=== PATIENT | female | born 1950 | race Caucasian/White ===

== ENCOUNTER 2017-11-19 17:05 | Emergency (ER) | payer MEDICARE, OTHER ==
--- NOTE | 2017-11-19 17:14 | PDOC ---
Rapid Medical Evaluation Time Seen by Provider: 11/19/17 17:10 Medical Evaluation: Allergies Allergy/AdvReac Type Severity Reaction Status Date / Time Penicillins Allergy Unknown Verified 03/20/15 12:12 11/19/17 17:11 I have performed a brief in-person evaluation of this patient. The patient presents with a chief complaint of: Crush injury to L 3rd digit after tripped and fall at home, no head injury, loc, DIA, dizziness, n/v. H/o HTN , HLD, not on blood thinners, DM Pertinent physical exam findings: stable w/ mild erythema to distal phalanx of L 3rd digit w/ very small area of subungal hematoma I have ordered the following:xray The patient will proceed to the ED for further evaluation. Discharge Disposition - Diagnosis Finger injury Qualifiers: Encounter type: initial encounter Laterality: left Qualified Code(s): S69.92XA - Unspecified injury of left wrist, hand and finger(s), initial encounter - Referrals - Patient Instructions - Post Discharge Activity
[2017-11-19 17:16] VITALS: BP 119/76; PULSE 87; TEMP 97.7; BMI 34.4
[2017-11-19] MEDS ORDERED: IBUPROFEN 600 MG TABLET (FP) PO ONE ×2 (17:54→17:56)
--- NOTE | 2017-11-19 17:54 | PDOC ---
History of Present Illness - General Chief Complaint: Pain, Acute Stated Complaint: FINGER INJURY Time Seen by Provider: 11/19/17 17:10 History Source: Patient Exam Limitations: No Limitations - History of Present Illness Initial Comments: 11/19/17 17:52 67 yr female with left middle digit finger got stuck in file drawer at 4pm today. pain and swelling to digit. Past History - Past Medical History Allergies/Adverse Reactions: Allergies Allergy/AdvReac Type Severity Reaction Status Date / Time Penicillins Allergy Unknown Verified 03/20/15 12:12 Home Medications: Ambulatory Orders Amlodipine Besylate 10 mg PO HS 03/20/15 Levothyroxine [Synthroid -] 25 mcg PO DAILY 03/20/15 Pravastatin Sodium 20 mg PO HS 03/20/15 Venlafaxine HCl ER [Effexor Xr -] 150 mg PO DAILY 03/20/15 Aspirin 81 mg PO ASDIR 11/19/17 Anemia: No Asthma: Yes (MANY YRS AGO) Cancer: No Cardiac Disorders: No CVA: No COPD: No CHF: Yes Dementia: No Diabetes: No GI Disorders: Yes (REFLUX) Disorders: No HTN: Yes Hypercholesterolemia: No Liver Disease: No Seizures: No Thyroid Disease: Yes (HYPO) - Surgical History Appendectomy: Yes Cardiac Surgery: No Cholecystectomy: No Lung Surgery: No Neurologic Surgery: No Orthopedic Surgery: Yes (BILAT KNEE REPLACEMENTS;) - Suicide/Smoking/Psychosocial Hx Smoking History: Never smoked Have you smoked in the past 12 months: No Hx Alcohol Use: Yes (OCCASIONAL;) Substance Use Type: Alcohol Hx Substance Use Treatment: No *Physical Exam - Vital Signs Last Vital Signs Temp Pulse Resp BP Pulse Ox 97.7 F 87 16 119/76 99 11/19/17 17:14 11/19/17 17:14 11/19/17 17:14 11/19/17 17:14 11/19/17 17:14 - Physical Exam General Appearance: Yes: Nourished, Appropriately Dressed Extremity: positive: Normal Capillary Refill, Tender, Other (left middle digit with swelling to the DIP , limited ROM due to pain nailbed intact , small subungal hematoma ) Integumentary: positive: Normal Color, Dry, Warm Neurologic: positive: Fully Oriented, Alert, Normal Mood/Affect, Normal Response , Motor Strength 5/5 Medical Decision Making - Medical Decision Making 11/19/17 17:56 cc: finger injury xray is negative will give motrin ice pack and splint follow up with ortho pt agrees with plan of care all questions asked and answered at discharge. *DC/Admit/Observation/Transfer Diagnosis at time of Disposition: Finger injury Qualifiers: Encounter type: initial encounter Laterality: left Qualified Code(s): S69.92XA - Unspecified injury of left wrist, hand and finger(s), initial encounter - Discharge Dispostion Disposition: HOME Condition at time of disposition: Good - Referrals Referrals: Liberty Harris [Primary Care Provider] - Lauro Verma MD [Staff Physician] - - Patient Instructions Additional Instructions: ice every 2hrs for 20 minutes for the next 2 days while awake use the splint at all times except to place the ice and to bathe take ibuprofen 600mg every 8hrs for pain follow with or for follow up next week if any worsening pain if you notice the nail bed filling up with black and blue (blood) return to ER - Post Discharge Activity
== END 2017-11-19 17:58 | disposition home or self-care (01) ==
LOC: JERFT 17:05
PROC: 2W3KX1Z Immobilization of Left Finger using Splint (ICD-10-PCS; principal; 2017-11-19)
DX: S69.92XA Unspecified injury of left wrist, hand and finger(s), initial encounter (principal); W22.03XA Walked into furniture, initial encounter; Y92.9 Unspecified place or not applicable; Y99.0 Civilian activity done for income or pay; I10 Essential (primary) hypertension; E03.9 Hypothyroidism, unspecified; K21.9 Gastro-esophageal reflux disease without esophagitis; I50.9 Heart failure, unspecified
CPT/HCPCS: 73140-TC-LT-FY; 99281-25

== ENCOUNTER 2022-02-14 12:46 | Emergency (ER) | payer OTHER ==
[2022-02-14 12:59] VITALS: BP 149/62; PULSE 83; RESP 17; TEMP 97.9; BMI 20.2
[2022-02-14] MEDS ORDERED: ACETAMINOPHEN 500 MG TABLET (FP) PO ONE (15:15)
[2022-02-14] MEDS ORDERED: LIDOCAINE 5% TOPICAL PATCH TP ONE (15:21)
[2022-02-14] MEDS ORDERED: ACETAMINOPHEN 325 MG TABLET (FP) ONE (16:10)
[2022-02-14] MEDS ORDERED: LIDOCAINE 5% TOPICAL PATCH ONE (16:10)
[2022-02-14] MEDS ORDERED: LIDOCAINE PATCH REMOVAL MC SCH (22:00)
== END 2022-02-14 16:25 | disposition home or self-care (01) ==
LOC: JERFT 12:46 → JER 12:46
DX: M54.50 Low back pain, unspecified (principal)
CPT/HCPCS: 99283-25

== ENCOUNTER 2022-12-07 22:47 | Inpatient (IN) | payer OTHER ==
[2022-12-07 23:00] VITALS: BMI 32.0
[2022-12-07] MEDS ORDERED: ACETAMINOPHEN 1000 MG/100 ML BAG IVPB ONE (23:27)
[2022-12-07] MEDS ORDERED: ONDANSETRON 4 MG/2 ML VIAL IVPUSH ONE (23:27)
[2022-12-07] MEDS ORDERED: ACETAMINOPHEN INJECTION 100 ML IVPB ONE (23:41)
[2022-12-08 01:42] LABS: BASO % 0.2 % (0-2.0); EOS % 1.2 % (0-4.5); HEMATOCRIT 33.9 % (32.4-45.2); HEMOGLOBIN 11.4 GM/dL (10.7-15.3); LYMPH % 19.6 % (8-40); MCH 29.3 pg (25.7-33.7); MCHC 33.7 g/dl (32.0-36.0); MEAN PLT VOLUME 10.5 fl (7.5-11.1); MONO % 9.7 % (3.8-10.2); NEUT % 69.3 % (42.8-82.8); PLATELET COUNT 206 10^3/uL (134-434); RDW 14.4 % (11.6-15.6); WHITE BLOOD COUNT 9.8 K/mm3 (4.0-10.0)
[2022-12-08 01:59] LABS: POTASSIUM 4.7 mmol/L (3.5-5.1)
[2022-12-08 02:01] LABS: CALCIUM 9.4 mg/dL (8.5-10.1)
[2022-12-08 02:02] LABS: ALBUMIN 3.7 g/dl (3.4-5.0)
[2022-12-08 02:05] LABS: CREATININE 0.7 mg/dL (0.55-1.3)
[2022-12-08 02:06] LABS: BILIRUBIN,TOTAL 0.8 mg/dL (0.2-1); TOT PROT 7.2 g/dl (6.4-8.2)
[2022-12-08 03:17] LABS: PH,URINE 5.5 (5.0-8.0); URINE APPEARANCE CLEAR; URINE BILIRUBIN NEGATIVE (NEGATIVE); URINE COLOR YELLOW; URINE GLUCOSE (UA) NEGATIVE (NEGATIVE); URINE KETONE 1+ (NEGATIVE); URINE LEUK ESTERASE NEGATIVE (NEGATIVE); URINE NITRITE NEGATIVE (NEGATIVE); URINE PROTEIN NEGATIVE (NEGATIVE)
[2022-12-08] MEDS ORDERED: LIDOCAINE 5% TOPICAL PATCH TP ONE (04:05)
[2022-12-08] MEDS ORDERED: LIDOCAINE 5% TOPICAL PATCH ONE (04:10)
[2022-12-08] MEDS ORDERED: morphine CARPU-JECT 4 MG/1 ML DISP.SYRIN IVPUSH ONE (09:42)
[2022-12-08] MEDS ORDERED: morphine SULFATE 4 MG/ML VIAL ONE (09:48)
[2022-12-08] MEDS ORDERED: ACETAMINOPHEN 325 MG TABLET (FP) PO PRN (13:34)
[2022-12-08] MEDS: ACETAMINOPHEN 325 MG TABLET (FP) PO PRN ×2 (15:22→22:21)
[2022-12-08] MEDS ORDERED: LIDOCAINE PATCH REMOVAL MC ONE (16:00)
[2022-12-08] MEDS: amLODIPine BESYLATE 5 MG TABLET (FP) PO SCH (22:09)
[2022-12-09] MEDS: ACETAMINOPHEN 325 MG TABLET (FP) PO PRN (06:31)
[2022-12-09] MEDS: LEVOTHYROXINE NA 100 MCG TABLET (FP) PO SCH (06:33)
[2022-12-09 08:56] LABS: HEMATOCRIT 35.1 % (32.4-45.2); HEMOGLOBIN 11.4 GM/dL (10.7-15.3); MCH 28.9 pg (25.7-33.7); MCHC 32.5 g/dl (32.0-36.0); MEAN CELL VOLUME 88.9 fl (80-96); MEAN PLT VOLUME 10.3 fl (7.5-11.1); PLATELET COUNT 215 10^3/uL (134-434); RBC 3.95 M/mm3 (3.60-5.2); RDW 14.4 % (11.6-15.6)
[2022-12-09 09:17] LABS: POTASSIUM 4.2 mmol/L (3.5-5.1)
[2022-12-09 09:20] LABS: CALCIUM 9.5 mg/dL (8.5-10.1)
[2022-12-09 09:21] LABS: BLOOD UREA NITROGEN 18.1 mg/dL (7-18); MAGNESIUM 2.2 mg/dL (1.8-2.4)
[2022-12-09 09:24] LABS: CREATININE 0.8 mg/dL (0.55-1.3)
[2022-12-09] MEDS ORDERED: VENLAFAXINE HCL 150 MG E.R. CAPSULE PO SCH (10:00)
[2022-12-09] MEDS: VENLAFAXINE HCL 75 MG E.R. CAPSULES PO SCH (11:14)
[2022-12-09] MEDS: amLODIPine BESYLATE 5 MG TABLET (FP) PO SCH (21:37)
[2022-12-10] MEDS: LEVOTHYROXINE NA 100 MCG TABLET (FP) PO SCH (06:04)
[2022-12-10] MEDS: VENLAFAXINE HCL 75 MG E.R. CAPSULES PO SCH (09:09)
[2022-12-10] MEDS: ENOXAPARIN NA (PORCINE) 40 MG/0.4 ML DISP.SYRIN SQ SCH (09:09)
[2022-12-10] MEDS: LIDOCAINE 5% TOPICAL PATCH TP SCH (10:06)
[2022-12-10] MEDS: CALCITONIN - SALMON SYNTHETIC 200 UNITS/SPRAY NS SCH (10:42)
[2022-12-10] MEDS: POLYETHYLENE GLYCOL (HEALTHYLAX) 3350 17 GM PACKET PO SCH ×2 (13:49→21:37)
[2022-12-10] MEDS: LIDOCAINE PATCH REMOVAL MC SCH (21:33)
[2022-12-10] MEDS: amLODIPine BESYLATE 5 MG TABLET (FP) PO SCH (21:33)
[2022-12-11] MEDS: LEVOTHYROXINE NA 100 MCG TABLET (FP) PO SCH (06:14)
[2022-12-11] MEDS: POLYETHYLENE GLYCOL (HEALTHYLAX) 3350 17 GM PACKET PO SCH ×3 (06:14→22:05)
[2022-12-11] MEDS ORDERED: ZOLEDRONIC ACID/MAN/WATER 5 MG/100 ML INFUS..BTL IVPB ONE (08:44)
[2022-12-11] MEDS: VENLAFAXINE HCL 75 MG E.R. CAPSULES PO SCH (09:39)
[2022-12-11] MEDS: FAMOTIDINE 20 MG TABLET PO SCH (09:39)
[2022-12-11] MEDS: LIDOCAINE 5% TOPICAL PATCH TP SCH (09:39)
[2022-12-11] MEDS: ENOXAPARIN NA (PORCINE) 40 MG/0.4 ML DISP.SYRIN SQ SCH (09:40)
[2022-12-11] MEDS: CALCITONIN - SALMON SYNTHETIC 200 UNITS/SPRAY NS SCH (09:44)
[2022-12-11] MEDS ORDERED: METHYLNALTREXONE BROMIDE 8 MG/0.4 ML SYRINGE SQ ONE (10:00)
[2022-12-11] MEDS: CALCIUM 250MG/VIT-D 125 UNITS 1 COMBO TABLET PO SCH (22:04)
[2022-12-11] MEDS: amLODIPine BESYLATE 5 MG TABLET (FP) PO SCH (22:04)
[2022-12-11] MEDS: LIDOCAINE PATCH REMOVAL MC SCH (22:07)
[2022-12-12] MEDS: POLYETHYLENE GLYCOL (HEALTHYLAX) 3350 17 GM PACKET PO SCH ×4 (06:50→21:32)
[2022-12-12] MEDS: LEVOTHYROXINE NA 100 MCG TABLET (FP) PO SCH (06:50)
[2022-12-12] MEDS: FAMOTIDINE 20 MG TABLET PO SCH (10:17)
[2022-12-12] MEDS: CALCIUM 250MG/VIT-D 125 UNITS 1 COMBO TABLET PO SCH ×2 (10:17→21:24)
[2022-12-12] MEDS: VENLAFAXINE HCL 75 MG E.R. CAPSULES PO SCH (10:17)
[2022-12-12] MEDS: LIDOCAINE 5% TOPICAL PATCH TP SCH (10:18)
[2022-12-12] MEDS: CALCITONIN - SALMON SYNTHETIC 200 UNITS/SPRAY NS SCH (10:18)
[2022-12-12] MEDS: ENOXAPARIN NA (PORCINE) 40 MG/0.4 ML DISP.SYRIN SQ SCH (10:18)
[2022-12-12 10:27] LABS: HEMATOCRIT 38.9 % (32.4-45.2); HEMOGLOBIN 12.5 GM/dL (10.7-15.3); MCH 28.6 pg (25.7-33.7); MCHC 32.2 g/dl (32.0-36.0); MEAN CELL VOLUME 88.7 fl (80-96); MEAN PLT VOLUME 10.1 fl (7.5-11.1); PLATELET COUNT 256 10^3/uL (134-434); RBC 4.38 M/mm3 (3.60-5.2); RDW 14.4 % (11.6-15.6); WHITE BLOOD COUNT 9.2 K/mm3 (4.0-10.0)
[2022-12-12 11:13] LABS: POTASSIUM 4.7 mmol/L (3.5-5.1)
[2022-12-12 11:34] LABS: CALCIUM 9.9 mg/dL (8.5-10.1)
[2022-12-12 11:35] LABS: ALBUMIN 3.4 g/dl (3.4-5.0); BLOOD UREA NITROGEN 19.7 mg/dL (7-18); MAGNESIUM 2.4 mg/dL (1.8-2.4)
[2022-12-12 11:37] LABS: CREATININE 0.7 mg/dL (0.55-1.3)
[2022-12-12 11:39] LABS: BILIRUBIN,TOTAL 0.4 mg/dL (0.2-1); TOT PROT 7.1 g/dl (6.4-8.2)
[2022-12-12] MEDS: amLODIPine BESYLATE 5 MG TABLET (FP) PO SCH (21:24)
[2022-12-12] MEDS: LIDOCAINE PATCH REMOVAL MC SCH (21:25)
[2022-12-13] MEDS: POLYETHYLENE GLYCOL (HEALTHYLAX) 3350 17 GM PACKET PO SCH ×3 (06:25→22:57)
[2022-12-13] MEDS: LEVOTHYROXINE NA 100 MCG TABLET (FP) PO SCH (06:25)
[2022-12-13] MEDS: ENOXAPARIN NA (PORCINE) 40 MG/0.4 ML DISP.SYRIN SQ SCH (09:13)
[2022-12-13] MEDS: FAMOTIDINE 20 MG TABLET PO SCH (09:13)
[2022-12-13] MEDS: CALCIUM 250MG/VIT-D 125 UNITS 1 COMBO TABLET PO SCH ×2 (09:13→22:58)
[2022-12-13] MEDS: VENLAFAXINE HCL 75 MG E.R. CAPSULES PO SCH (09:13)
[2022-12-13] MEDS: CALCITONIN - SALMON SYNTHETIC 200 UNITS/SPRAY NS SCH (09:14)
[2022-12-13] MEDS: LIDOCAINE 5% TOPICAL PATCH TP SCH (09:14)
[2022-12-13] MEDS: amLODIPine BESYLATE 5 MG TABLET (FP) PO SCH (22:55)
[2022-12-13] MEDS: LIDOCAINE PATCH REMOVAL MC SCH (23:00)
[2022-12-14] MEDS: LEVOTHYROXINE NA 100 MCG TABLET (FP) PO SCH (06:58)
[2022-12-14] MEDS: POLYETHYLENE GLYCOL (HEALTHYLAX) 3350 17 GM PACKET PO SCH ×3 (06:58→23:40)
[2022-12-14] MEDS: ENOXAPARIN NA (PORCINE) 40 MG/0.4 ML DISP.SYRIN SQ SCH (09:05)
[2022-12-14] MEDS: FAMOTIDINE 20 MG TABLET PO SCH (09:05)
[2022-12-14] MEDS: CALCITONIN - SALMON SYNTHETIC 200 UNITS/SPRAY NS SCH (09:05)
[2022-12-14] MEDS: CALCIUM 250MG/VIT-D 125 UNITS 1 COMBO TABLET PO SCH ×2 (09:05→22:36)
[2022-12-14] MEDS: LIDOCAINE 5% TOPICAL PATCH TP SCH (09:05)
[2022-12-14] MEDS: VENLAFAXINE HCL 75 MG E.R. CAPSULES PO SCH (09:05)
[2022-12-14] MEDS ORDERED: PANTOPRAZOLE 20 MG TABLET PO ONE (18:20)
[2022-12-14] MEDS: amLODIPine BESYLATE 5 MG TABLET (FP) PO SCH (23:40)
[2022-12-14] MEDS: LIDOCAINE PATCH REMOVAL MC SCH (23:48)
[2022-12-15] MEDS: POLYETHYLENE GLYCOL (HEALTHYLAX) 3350 17 GM PACKET PO SCH ×3 (06:36→22:02)
[2022-12-15] MEDS: LEVOTHYROXINE NA 100 MCG TABLET (FP) PO SCH (06:36)
[2022-12-15 09:30] LABS: BASO % 0.5 % (0-2.0); HEMATOCRIT 39.4 % (32.4-45.2); HEMOGLOBIN 12.5 GM/dL (10.7-15.3); LYMPH % 21.7 % (8-40); MCH 28.1 pg (25.7-33.7); MCHC 31.7 g/dl (32.0-36.0); MEAN CELL VOLUME 88.4 fl (80-96); MEAN PLT VOLUME 10.5 fl (7.5-11.1); MONO % 10.5 % (3.8-10.2); NEUT % 65.3 % (42.8-82.8); PLATELET COUNT 267 10^3/uL (134-434); RBC 4.45 M/mm3 (3.60-5.2); RDW 14.4 % (11.6-15.6); WHITE BLOOD COUNT 11.4 K/mm3 (4.0-10.0)
[2022-12-15] MEDS: LIDOCAINE 5% TOPICAL PATCH TP SCH (09:33)
[2022-12-15] MEDS: ENOXAPARIN NA (PORCINE) 40 MG/0.4 ML DISP.SYRIN SQ SCH (09:33)
[2022-12-15] MEDS: CALCITONIN - SALMON SYNTHETIC 200 UNITS/SPRAY NS SCH (09:35)
[2022-12-15] MEDS: VENLAFAXINE HCL 75 MG E.R. CAPSULES PO SCH (09:35)
[2022-12-15] MEDS: CALCIUM 250MG/VIT-D 125 UNITS 1 COMBO TABLET PO SCH ×2 (09:36→22:05)
[2022-12-15] MEDS: FAMOTIDINE 20 MG TABLET PO SCH (09:36)
[2022-12-15 09:46] LABS: POTASSIUM 4.5 mmol/L (3.5-5.1)
[2022-12-15 09:55] LABS: ALBUMIN 3.6 g/dl (3.4-5.0); BLOOD UREA NITROGEN 22.9 mg/dL (7-18); CALCIUM 10.3 mg/dL (8.5-10.1)
[2022-12-15 09:58] LABS: CREATININE 0.9 mg/dL (0.55-1.3)
[2022-12-15 09:59] LABS: BILIRUBIN,TOTAL 0.7 mg/dL (0.2-1)
[2022-12-15 10:00] LABS: TOT PROT 7.4 g/dl (6.4-8.2)
[2022-12-15] MEDS: ACETAMINOPHEN 325 MG TABLET (FP) PO PRN (12:48)
[2022-12-15] MEDS: amLODIPine BESYLATE 5 MG TABLET (FP) PO SCH (22:03)
[2022-12-15] MEDS: LIDOCAINE PATCH REMOVAL MC SCH (22:04)
[2022-12-16] MEDS: POLYETHYLENE GLYCOL (HEALTHYLAX) 3350 17 GM PACKET PO SCH ×3 (06:40→21:54)
[2022-12-16] MEDS: LEVOTHYROXINE NA 100 MCG TABLET (FP) PO SCH (06:41)
[2022-12-16] MEDS: VENLAFAXINE HCL 75 MG E.R. CAPSULES PO SCH (09:40)
[2022-12-16] MEDS: CALCIUM 250MG/VIT-D 125 UNITS 1 COMBO TABLET PO SCH ×2 (09:40→21:56)
[2022-12-16] MEDS: FAMOTIDINE 20 MG TABLET PO SCH (09:40)
[2022-12-16] MEDS: ENOXAPARIN NA (PORCINE) 40 MG/0.4 ML DISP.SYRIN SQ SCH (09:41)
[2022-12-16] MEDS: LIDOCAINE 5% TOPICAL PATCH TP SCH (09:41)
[2022-12-16] MEDS: CALCITONIN - SALMON SYNTHETIC 200 UNITS/SPRAY NS SCH (09:41)
[2022-12-16] MEDS: amLODIPine BESYLATE 5 MG TABLET (FP) PO SCH (21:54)
[2022-12-16] MEDS: LIDOCAINE PATCH REMOVAL MC SCH (21:56)
[2022-12-17] MEDS: POLYETHYLENE GLYCOL (HEALTHYLAX) 3350 17 GM PACKET PO SCH ×5 (06:22→22:02)
[2022-12-17] MEDS: LEVOTHYROXINE NA 100 MCG TABLET (FP) PO SCH (06:22)
[2022-12-17] MEDS: CALCIUM 250MG/VIT-D 125 UNITS 1 COMBO TABLET PO SCH ×2 (09:48→21:58)
[2022-12-17] MEDS: FAMOTIDINE 20 MG TABLET PO SCH (09:48)
[2022-12-17] MEDS: VENLAFAXINE HCL 75 MG E.R. CAPSULES PO SCH (09:48)
[2022-12-17] MEDS: LIDOCAINE 5% TOPICAL PATCH TP SCH (09:49)
[2022-12-17] MEDS: CALCITONIN - SALMON SYNTHETIC 200 UNITS/SPRAY NS SCH (09:51)
[2022-12-17] MEDS: ENOXAPARIN NA (PORCINE) 40 MG/0.4 ML DISP.SYRIN SQ SCH (10:13)
[2022-12-17] MEDS: ACETAMINOPHEN 325 MG TABLET (FP) PO PRN ×2 (13:43→21:56)
[2022-12-17] MEDS ORDERED: oxyCODONE HCL 5 MG TABLET PO PRN (14:37)
[2022-12-17] MEDS: amLODIPine BESYLATE 5 MG TABLET (FP) PO SCH (21:56)
[2022-12-17] MEDS: LIDOCAINE PATCH REMOVAL MC SCH (22:00)
[2022-12-18] MEDS: LEVOTHYROXINE NA 100 MCG TABLET (FP) PO SCH (07:51)
[2022-12-18] MEDS: POLYETHYLENE GLYCOL (HEALTHYLAX) 3350 17 GM PACKET PO SCH ×3 (07:51→23:22)
[2022-12-18] MEDS: FAMOTIDINE 20 MG TABLET PO SCH (09:47)
[2022-12-18] MEDS: VENLAFAXINE HCL 75 MG E.R. CAPSULES PO SCH (09:47)
[2022-12-18] MEDS: CALCIUM 250MG/VIT-D 125 UNITS 1 COMBO TABLET PO SCH ×2 (09:48→23:21)
[2022-12-18] MEDS: LIDOCAINE 5% TOPICAL PATCH TP SCH (09:48)
[2022-12-18] MEDS: ENOXAPARIN NA (PORCINE) 40 MG/0.4 ML DISP.SYRIN SQ SCH (09:48)
[2022-12-18] MEDS: CALCITONIN - SALMON SYNTHETIC 200 UNITS/SPRAY NS SCH (09:49)
[2022-12-18] MEDS: amLODIPine BESYLATE 5 MG TABLET (FP) PO SCH (23:20)
[2022-12-18] MEDS: LIDOCAINE PATCH REMOVAL MC SCH (23:22)
[2022-12-18] MEDS: ACETAMINOPHEN 325 MG TABLET (FP) PO PRN (23:26)
[2022-12-19] MEDS: LEVOTHYROXINE NA 100 MCG TABLET (FP) PO SCH (06:32)
[2022-12-19] MEDS: POLYETHYLENE GLYCOL (HEALTHYLAX) 3350 17 GM PACKET PO SCH ×2 (09:19→15:34)
[2022-12-19] MEDS: ENOXAPARIN NA (PORCINE) 40 MG/0.4 ML DISP.SYRIN SQ SCH (10:07)
[2022-12-19] MEDS: LIDOCAINE 5% TOPICAL PATCH TP SCH (10:08)
[2022-12-19] MEDS: FAMOTIDINE 20 MG TABLET PO SCH (10:09)
[2022-12-19] MEDS: CALCIUM 250MG/VIT-D 125 UNITS 1 COMBO TABLET PO SCH (10:09)
[2022-12-19] MEDS: VENLAFAXINE HCL 75 MG E.R. CAPSULES PO SCH (10:09)
[2022-12-19] MEDS: ACETAMINOPHEN 325 MG TABLET (FP) PO PRN ×2 (10:10→16:54)
[2022-12-19] MEDS: CALCITONIN - SALMON SYNTHETIC 200 UNITS/SPRAY NS SCH (10:17)
[2022-12-19 14:13] VITALS: BP 124/70; PULSE 100; RESP 20; TEMP 97.8
== END 2022-12-19 18:00 | disposition home health service (06) | DRG 544 ==
LOC: JER 22:47 → JERBED 12-08 09:42 → J8W 12-08 11:28 → OBSVTOIN 12-08 13:30
PROVIDERS: ADMIT Internal Medicine; ATTEND Internal Medicine
DX: M80.88XA Other osteoporosis with current pathological fracture, vertebra(e), initial encounter for fracture (principal); M54.30 Sciatica, unspecified side; E03.9 Hypothyroidism, unspecified; K21.9 Gastro-esophageal reflux disease without esophagitis; K59.00 Constipation, unspecified; E66.9 Obesity, unspecified; K80.80 Other cholelithiasis without obstruction; Z68.32 Body mass index [BMI] 32.0-32.9, adult; E78.5 Hyperlipidemia, unspecified; N32.81 Overactive bladder; M85.88 Other specified disorders of bone density and structure, other site; M51.36 Other intervertebral disc degeneration, lumbar region; M43.16 Spondylolisthesis, lumbar region; I10 Essential (primary) hypertension; Z95.2 Presence of prosthetic heart valve; Z96.653 Presence of artificial knee joint, bilateral
CPT/HCPCS: 36415; 72128-TC; 72131-TC; 74177-TC; 76705-TC; 80048; 80053; 81003; 83605; 83690; 83735; 84439; 84443; 84481; 84484; 85025; 85027; 93005; 93010; 97116-GP; 97161-GP; 99285-25; G0378; Q9967

== ENCOUNTER 2023-03-09 16:39 | Observation (INO) | payer OTHER ==
[2023-03-09] MEDS ORDERED: ACETAMINOPHEN 1000 MG/100 ML BAG IVPB ONE (17:09)
[2023-03-09] MEDS ORDERED: ONDANSETRON 4 MG/2 ML VIAL IVPUSH ONE (17:11)
[2023-03-09] MEDS ORDERED: ACETAMINOPHEN INJECTION 100 ML IVPB ONE (17:26)
[2023-03-09] MEDS ORDERED: ONDANSETRON 4 MG/2 ML VIAL ONE (17:26)
[2023-03-09 18:01] LABS: BASO % 0.5 % (0-2.0); EOS % 1.8 % (0-4.5); HEMATOCRIT 36.6 % (32.4-45.2); HEMOGLOBIN 12.3 GM/dL (10.7-15.3); LYMPH % 28.2 % (8-40); MCH 29.3 pg (25.7-33.7); MCHC 33.7 g/dl (32.0-36.0); MEAN CELL VOLUME 86.9 fl (80-96); MEAN PLT VOLUME 10.8 fl (7.5-11.1); NEUT % 61.5 % (42.8-82.8); PLATELET COUNT 170 10^3/uL (134-434); RBC 4.22 M/mm3 (3.60-5.2); RDW 15.2 % (11.6-15.6); WHITE BLOOD COUNT 9.6 K/mm3 (4.0-10.0)
[2023-03-09 18:07] LABS: PROTHROMBIN TIME (PATIENT) 11.6 SEC (9.7-13.0)
[2023-03-09 18:10] LABS: ACTIVATED PTT 29.7 SECONDS (25.2-36.5)
[2023-03-09 18:22] LABS: CALCIUM 9.3 mg/dL (8.5-10.1)
[2023-03-09 18:23] LABS: ALBUMIN 3.6 g/dl (3.4-5.0); BLOOD UREA NITROGEN 25.6 mg/dL (7-18)
[2023-03-09 18:26] LABS: CREATININE 0.8 mg/dL (0.55-1.3)
[2023-03-09 18:27] LABS: TOT PROT 7.3 g/dl (6.4-8.2)
[2023-03-09 18:28] LABS: BILIRUBIN,TOTAL 0.4 mg/dL (0.2-1)
[2023-03-09 19:54] LABS: EPI CELLS 10 /uL (0-25.1); HYALINE CASTS 3 /uL (0-3.1); PH,URINE 5.5 (5.0-8.0); URINE APPEARANCE CLEAR; URINE BACTERIA 107 /uL (0-1359); URINE BILIRUBIN NEGATIVE (NEGATIVE); URINE COLOR YELLOW; URINE GLUCOSE (UA) NEGATIVE (NEGATIVE); URINE KETONE TRACE (NEGATIVE); URINE LEUK ESTERASE 2+ (NEGATIVE); URINE NITRITE NEGATIVE (NEGATIVE); URINE PROTEIN NEGATIVE (NEGATIVE); URINE RBC 21 /uL (0-23.9); URINE WBC 196 /uL (0-25.8)
[2023-03-09] MEDS ORDERED: morphine CARPU-JECT 2 MG/1 ML DISP.SYRIN IVPUSH ONE (21:47)
[2023-03-09] MEDS: NITROFURANTOIN MACROCRYSTAL 50 MG CAPSULE (FP) PO SCH (22:31)
[2023-03-10] MEDS ORDERED: ONDANSETRON 4 MG/2 ML VIAL IVPUSH PRN (03:32)
[2023-03-10] MEDS ORDERED: KETOROLAC TROMETHAMINE 15 MG/ML VIAL IVPUSH ONE (03:36)
[2023-03-10] MEDS ORDERED: DOCUSATE SODIUM 100 MG CAPSULE (FP) PO ONE ×3 (03:37→06:18)
[2023-03-10] MEDS ORDERED: ACETAMINOPHEN 1000 MG/100 ML BAG IVPB PRN (03:39)
[2023-03-10] MEDS ORDERED: CYCLOBENZAPRINE HCL 5 MG TABLET PO PRN (03:40)
[2023-03-10] MEDS ORDERED: POLYETHYLENE GLYCOL (HEALTHYLAX) 3350 17 GM PACKET PO PRN (03:52)
[2023-03-10] MEDS ORDERED: ASPIRIN 81 MG CHEWABLE TABLETS ONE (06:15)
[2023-03-10] MEDS: NITROFURANTOIN MACROCRYSTAL 50 MG CAPSULE (FP) PO SCH ×4 (06:16→22:52)
[2023-03-10] MEDS: ASPIRIN 81 MG CHEWABLE TABLETS PO SCH (06:16)
[2023-03-10] MEDS ORDERED: NITROFURANTOIN MACROCRYSTAL 50 MG CAPSULE (FP) ONE (06:18)
[2023-03-10] MEDS ORDERED: KETOROLAC TROMETHAMINE 15 MG/ML VIAL ONE (06:18)
[2023-03-10 07:09] LABS: BASO % 0.3 % (0-2.0); EOS % 2.2 % (0-4.5); HEMATOCRIT 34.6 % (32.4-45.2); HEMOGLOBIN 11.4 GM/dL (10.7-15.3); MCHC 32.8 g/dl (32.0-36.0); MEAN CELL VOLUME 88.5 fl (80-96); MEAN PLT VOLUME 10.3 fl (7.5-11.1); MONO % 9.9 % (3.8-10.2); NEUT % 53.6 % (42.8-82.8); PLATELET COUNT 154 10^3/uL (134-434); RBC 3.91 M/mm3 (3.60-5.2); RDW 15.4 % (11.6-15.6); WHITE BLOOD COUNT 7.9 K/mm3 (4.0-10.0)
[2023-03-10] MEDS ORDERED: LEVOTHYROXINE NA 100 MCG TABLET (FP) ONE (07:09)
[2023-03-10] MEDS: LEVOTHYROXINE NA 100 MCG TABLET (FP) PO SCH (07:13)
[2023-03-10] MEDS: DEXTROSE 5%-NORMAL SALINE 1,000 ML IV SCH (07:46)
[2023-03-10] MEDS ORDERED: amLODIPine BESYLATE 5 MG TABLET (FP) ONE ×2 (09:09→09:17)
[2023-03-10] MEDS ORDERED: LIDOCAINE 5% TOPICAL PATCH ONE (09:09)
[2023-03-10] MEDS: PANTOPRAZOLE 40 MG TABLET PO SCH (09:23)
[2023-03-10] MEDS: LIDOCAINE 5% TOPICAL PATCH TP SCH (09:23)
[2023-03-10] MEDS: amLODIPine BESYLATE 10 MG TABLET (FP) PO SCH (09:23)
[2023-03-10] MEDS: VENLAFAXINE HCL 75 MG E.R. CAPSULES PO SCH ×2 (09:23→22:46)
[2023-03-10] MEDS ORDERED: GABAPENTIN 100 MG CAPSULE ONE (14:09)
[2023-03-10] MEDS: GABAPENTIN 100 MG CAPSULE PO SCH ×2 (14:11→22:47)
[2023-03-10 20:03] VITALS: BMI 33.2
[2023-03-10] MEDS ORDERED: DOCUSATE SODIUM 100 MG CAPSULE (FP) PO SCH (22:00)
[2023-03-10] MEDS ORDERED: VENLAFAXINE HCL 150 MG E.R. CAPSULE PO SCH (22:00)
[2023-03-10] MEDS: ATORVASTATIN CA 10 MG TABLET (FP) PO SCH (22:47)
[2023-03-10] MEDS: LIDOCAINE PATCH REMOVAL MC SCH (22:47)
[2023-03-10] MEDS: POLYETHYLENE GLYCOL (HEALTHYLAX) 3350 17 GM PACKET PO SCH (22:48)
[2023-03-11] MEDS: NITROFURANTOIN MACROCRYSTAL 50 MG CAPSULE (FP) PO SCH ×2 (01:16→05:38)
[2023-03-11] MEDS ORDERED: MELATONIN 5 MG TABLETS PO PRN (01:54)
[2023-03-11] MEDS: KETOROLAC TROMETHAMINE 15 MG/ML VIAL IVPUSH PRN ×3 (02:56→22:31)
[2023-03-11] MEDS: ASPIRIN 81 MG CHEWABLE TABLETS PO SCH (05:38)
[2023-03-11] MEDS: GABAPENTIN 100 MG CAPSULE PO SCH ×3 (05:39→22:30)
[2023-03-11] MEDS: LEVOTHYROXINE NA 100 MCG TABLET (FP) PO SCH (07:02)
[2023-03-11] MEDS: amLODIPine BESYLATE 10 MG TABLET (FP) PO SCH ×2 (10:43→12:53)
[2023-03-11] MEDS: POLYETHYLENE GLYCOL (HEALTHYLAX) 3350 17 GM PACKET PO SCH ×2 (10:44→22:32)
[2023-03-11] MEDS: PANTOPRAZOLE 40 MG TABLET PO SCH (10:44)
[2023-03-11] MEDS: VENLAFAXINE HCL 75 MG E.R. CAPSULES PO SCH ×2 (10:44→22:31)
[2023-03-11] MEDS: DEXTROSE 5%-NORMAL SALINE 1,000 ML IV SCH (11:07)
[2023-03-11 11:12] LABS: POTASSIUM 4.4 mmol/L (3.5-5.1)
[2023-03-11 11:14] LABS: BLOOD UREA NITROGEN 24.8 mg/dL (7-18)
[2023-03-11] MEDS ORDERED: LIDOCAINE 4% PATCH TP SCH (11:25)
[2023-03-11] MEDS: amLODIPine BESYLATE 5 MG TABLET (FP) PO SCH (11:46)
[2023-03-11] MEDS: LIDOCAINE 4% PATCH TP SCH (12:31)
[2023-03-11] MEDS: LIDOCAINE 5% TOPICAL PATCH TP SCH (12:53)
[2023-03-11 17:39] LABS: MAGNESIUM 2.1 mg/dL (1.8-2.4)
[2023-03-11 17:42] LABS: CREATININE 0.9 mg/dL (0.55-1.3); PHOSPHOROUS 3.3 mg/dL (2.5-4.9)
[2023-03-11] MEDS: ATORVASTATIN CA 10 MG TABLET (FP) PO SCH (22:30)
[2023-03-11] MEDS: LIDOCAINE PATCH REMOVAL MC SCH (22:32)
[2023-03-12] MEDS: ASPIRIN 81 MG CHEWABLE TABLETS PO SCH (06:24)
[2023-03-12] MEDS: LEVOTHYROXINE NA 100 MCG TABLET (FP) PO SCH (06:24)
[2023-03-12] MEDS: GABAPENTIN 100 MG CAPSULE PO SCH ×3 (06:24→22:37)
[2023-03-12] MEDS: PANTOPRAZOLE 40 MG TABLET PO SCH (09:49)
[2023-03-12] MEDS: amLODIPine BESYLATE 5 MG TABLET (FP) PO SCH (09:49)
[2023-03-12] MEDS: POLYETHYLENE GLYCOL (HEALTHYLAX) 3350 17 GM PACKET PO SCH ×2 (09:49→22:37)
[2023-03-12] MEDS: VENLAFAXINE HCL 75 MG E.R. CAPSULES PO SCH ×2 (09:49→22:36)
[2023-03-12] MEDS: KETOROLAC TROMETHAMINE 15 MG/ML VIAL IVPUSH PRN (11:18)
[2023-03-12] MEDS: LIDOCAINE 4% PATCH TP SCH (11:18)
[2023-03-12] MEDS: ATORVASTATIN CA 10 MG TABLET (FP) PO SCH (22:36)
[2023-03-12] MEDS: LIDOCAINE PATCH REMOVAL MC SCH (22:37)
[2023-03-13] MEDS: KETOROLAC TROMETHAMINE 15 MG/ML VIAL IVPUSH PRN (01:14)
[2023-03-13] MEDS: ASPIRIN 81 MG CHEWABLE TABLETS PO SCH (04:44)
[2023-03-13] MEDS: GABAPENTIN 100 MG CAPSULE PO SCH ×2 (05:19→14:10)
[2023-03-13] MEDS: LEVOTHYROXINE NA 100 MCG TABLET (FP) PO SCH (06:14)
[2023-03-13 07:03] VITALS: RESP 18
[2023-03-13] MEDS: amLODIPine BESYLATE 5 MG TABLET (FP) PO SCH (09:47)
[2023-03-13] MEDS: PANTOPRAZOLE 40 MG TABLET PO SCH (09:47)
[2023-03-13] MEDS: POLYETHYLENE GLYCOL (HEALTHYLAX) 3350 17 GM PACKET PO SCH (09:47)
[2023-03-13] MEDS: VENLAFAXINE HCL 75 MG E.R. CAPSULES PO SCH (09:48)
[2023-03-13] MEDS: LIDOCAINE 4% PATCH TP SCH (09:48)
[2023-03-13] MEDS ORDERED: LIDOCAINE 4% PATCH TP SCH (10:00)
[2023-03-13 15:03] VITALS: BP 133/81; PULSE 70; TEMP 97.9
== END 2023-03-13 17:27 | disposition home health service (06) ==
LOC: JER 16:39 → JERBED 03-10 00:08 → J8W 03-10 15:05
PROVIDERS: ADMIT Internal Medicine; ATTEND Family Medicine
PROC: 3E033NZ Introduction of Analgesics, Hypnotics, Sedatives into Peripheral Vein, Percutaneous Approach (ICD-10-PCS; principal; 2023-03-10)
PROC: 3E033GC Introduction of Other Therapeutic Substance into Peripheral Vein, Percutaneous Approach (ICD-10-PCS; 2023-03-10)
PROC: 3E0333Z Introduction of Anti-inflammatory into Peripheral Vein, Percutaneous Approach (ICD-10-PCS; 2023-03-10)
PROC: 3E033NZ Introduction of Analgesics, Hypnotics, Sedatives into Peripheral Vein, Percutaneous Approach (ICD-10-PCS; 2023-03-10)
DX: K80.20 Calculus of gallbladder without cholecystitis without obstruction (principal); M54.9 Dorsalgia, unspecified; M54.50 Low back pain, unspecified; R10.11 Right upper quadrant pain; R10.9 Unspecified abdominal pain; R26.2 Difficulty in walking, not elsewhere classified; Z90.49 Acquired absence of other specified parts of digestive tract; K21.9 Gastro-esophageal reflux disease without esophagitis; I50.9 Heart failure, unspecified; E78.5 Hyperlipidemia, unspecified; E03.9 Hypothyroidism, unspecified; N32.81 Overactive bladder; R11.0 Nausea; K76.0 Fatty (change of) liver, not elsewhere classified; K59.00 Constipation, unspecified; Z96.653 Presence of artificial knee joint, bilateral; Z88.1 Allergy status to other antibiotic agents; Z88.0 Allergy status to penicillin; Z87.440 Personal history of urinary (tract) infections
CPT/HCPCS: 36415; 74177-TC; 76705-TC; 80048; 80053; 81003; 83690; 83735; 84100; 84484; 85025; 85610; 85730; 86850; 86900; 86901; 87086; 93005; 93010; 96365; 96375; 96376; 97116-GP; 97161-GP; 99285-25; G0378; Q9967